=== PATIENT | male | born 1995 | race Caucasian/White ===

== ENCOUNTER 2016-09-04 20:12 | Emergency (ER) | payer OTHER ==
[~2016-09-04] VITALS: Ht 175.3 cm; Wt 72.6 kg
[2016-09-04 23:12] VITALS: BP 154/70
[2016-09-04] MEDS ORDERED: PERCOCET 5MG/325MG TAB PO ONE (23:15)
[2016-09-04] MEDS ORDERED: OXYCODONE/APAP 5MG/325MG(BULK FOR ED) 1 TABLET PO ONE (23:15)
--- NOTE | 2016-09-05 11:42 | REPUSA ---
CT of the facial bones without contrast Clinical history: Pain, jaw dislocation. Technique: Multiple axial CT images were obtained through the facial bones and paranasal sinuses util izing 3 mm axial slices without administration of contrast. Coronal and sagittal reconstructions were also obtained. Findings: There is an acute, medially displaced and laterally angulated fracture of the proximal righ t mandible just inferior to the right mandibular head.. There is medial displacement of the rightmand ibular head at the temporomandibular joint, with loss of normal articulation at this site. No other f ractures are seen. The visualized paranasal sinuses are clear. The osteomeatal complexes are patent b ilaterally. The nasal septum is midline. The visualized mastoid air cells are clear. The superficial soft tissues are within normal limits. Impression: Acute, medially displaced and latterly angulated fracture of the region of the head of th e right mandible with partial dislocation of the right temporomandibular joint.
== END 2016-09-04 23:28 | disposition home or self-care (01) ==
LOC: M ED 21:39
DX: S02.40CA Maxillary fracture, right side, initial encounter for closed fracture (principal); F17.210 Nicotine dependence, cigarettes, uncomplicated; W50.0XXA Accidental hit or strike by another person, initial encounter; Y92.830 Public park as the place of occurrence of the external cause; Y93.64 Activity, baseball; Y99.9 Unspecified external cause status